=== PATIENT | female | born 1940 | race Caucasian/White ===

== ENCOUNTER 2022-10-28 10:03 | Outpatient (CLI) | payer MEDICARE, BC, SELFPAY ==
--- NOTE | 2022-10-28 10:15 | CRLHL7_ITS ---
For Patients: As a result of the Cures Act, medical imaging exams and procedure reports are released immediately into your electronic medical record. You may view this report before your referring provider. If you have questions, please contact your health care provider. Indication: Diplopia. Meningioma. Technique: Multiplanar, multisequence MRI of the brain was performed without and with the use of intravenous contrast. Contrast: 15 cc Dotarem. Comparison: Multiple prior MRIs of the brain, most recent dated 04/30/2021. Findings: Redemonstration of an enhancing lesion centered at right tentorium. Extension of the lesion into the prepontine cistern with slight unchanged mass effect upon the alexa. Involvement of Meckel`s cave and Dorello`s canal on the right. Additional slight extension into the posterior aspect of the right cavernous sinus abutting the cavernous carotid flow void without encasement. Minimal mass effect upon the medial temporal lobe without edema. The right optic nerve appears intact. No evidence of optic chiasm or intraorbital optic nerve impingement. Overall the lesion measures approximately 2.0 x 2.0 cm (TR X AP) and appears similar to prior examinations. No parenchymal restricted diffusion. The ventricles appear stable in size and configuration. Mild parenchymal volume loss. Scattered T2 FLAIR hyperintense foci within the subcortical and periventricular white matter, favored to represent chronic ischemic microvascular disease. Mild paranasal sinus mucosal disease. Moderate right mastoid effusion. Impression: 1. Overall similar appearing presumed meningioma involving the right tentorium, prepontine cistern and posterior cavernous sinus. Abutment of the cavernous carotid flow void posteriorly. Extension into Meckel`s cave and Dorello`s canal. 2. Similar subtle mass effect upon the anterior alexa without parenchymal edema. 3. Stable mild chronic ischemic microvascular disease. Dictated by Ishmael Lindsay MD @ 10/30/2022 9:25:43 AM (Electronically Signed)
== END 2022-10-28 10:04 | disposition home or self-care (01) ==
PROVIDERS: Absent Provider Surgery; PCP Surgery; Visit Provider Ophthalmology
DX: H53.2 Diplopia (principal); I67.82 Cerebral ischemia; R22.0 Localized swelling, mass and lump, head
CPT/HCPCS: 70553; A9575

== ENCOUNTER 2023-03-30 10:45 | Outpatient (RCR) | payer MEDICARE, BC, SELFPAY | END 2023-07-28 23:59 | disposition home or self-care (01) | PROVIDERS: PCP Surgery; Visit Provider Surgery | DX: M54.2 Cervicalgia (principal); Z51.89 Encounter for other specified aftercare | CPT/HCPCS: 97110; 97140; 97161 ==

== ENCOUNTER 2023-09-17 09:15 | Outpatient (RCR) | payer MEDICARE, BC, SELFPAY ==
--- NOTE | 2023-06-25 12:04 | OT.OPOE ---
OT Outpatient Ortho Eval OT Outpatient Ortho Eval* Start: 06/24/23 18:11 Freq: Status: Active Protocol: Document 06/24/23 18:12 AMB (Rec: 06/24/23 18:21 AMB [id number]) E-signed By Gabriela Smith, OTR/L, CLT, FOOD PRODUCTS TESTER OT OP Ortho Eval Details Complexity Complexity Low Insurance Information Insurance Information Medicare B Outpatient History/Precautions Current Condition/Medical Diagnosis Referring Provider Dr Palomares Treatment Diagnosis Pain, limited ROM, weakness LUE secondary to DR ivonne moser US avulsion injury Date of Onset 05/12/24 Medical Conditions HTN,Arthritis,Osteoporosis Other Conditions PMH/Medication list (copied from ortho chart): Medications: atenolol 25 mg PO DAILY latanoprost 0.005% drps ophthalmic (eye) lisinopril 20 mg PO DAILY spironolactone 25 mg PO DAILY Functional & Cognitive Status Patient needs assist w/ADL's: No Patient appears alert: Yes Tobacco Measurement Smoking Status: Never smoker Exposure to secondhand smoke: No Electronic Cigarettes (Vaping) Vaping Status: Never vaped Exposure to secondhand e- cigarettes?: No [facility] Active Problems (Updated 05/19 @ 14:21 by Paula Mariee) Osteoarthritis of carpometacarpal (CMC) joint of right thumb (Acute) severe - incidental finding M18.11 - Unilateral primary osteoarthritis of first carpometacarpal joint, right hand (ICD-10) Right wrist fracture (Acute) closed treatment of a closed, acute, impacted, nondisplaced fracture of the distal radius with ulnar styloid avulsion injury (DOI: 05/12/2023) S62.101A - Fracture of unspecified carpal bone, right wrist, initial encounter for closed fracture (ICD-10) Medical History (Updated 05/19 @ 14:21 by Paula Mariee) Neck pain M54.2 - Cervicalgia (ICD-10) Hypertension I10 - Essential (primary) hypertension (ICD-10) Surgical History (Updated 07/11 @ 14:08 by Roxanne Piña ~ 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 Pt states she had pain initially but waited until the next day to be seen in urgent care where she discovered that she had broken her wrist. Pt was referred to orthopedics and casted on . The cast was removed on 06/16/23 at which point pt says was not happy with her healing and recommended surgery, however, pt states she really does not want to pursue surgery at this time and opted for continued conservative management. Pt states she is left handed so she feels she is not as concerned. Pt states she has continued her daily routine including all self cares and making sure she gets her lipstick on straight every day . (she has an immense sense of humor) Pt states her pain is on average 4-5/10 but not constant, just with certain movements. Goniometric Comments Goniometric Comments Goniometric Comments 06/25/23 AROM of BUE is WNL throughout with the exception of the RUE forearm and wrist. AROM of the RUE wrist flexion is 35, ext is 40, UD is 20, RD is 10, pronation is 40, supination is 70. Pt is able to make a full composite fist and opposition to the PIP of 5th digit. Too early for strength testing. OT Objective Data Observations/Posture/Limb Appearance Objective Observations 06/25/23 Very mild swelling is appreciated throughout the RUE wrist and hand. No bruising. OT Problems Problems Problems Decreased Strength,Decreased Range of Motion,Decreased Dexterity,Pain,Decreased Coordination,Lifting,Gripping, Pinching Other Problems Opening Containers,Dressing, Computer Patient Potential Good Assessment Assessment Assessment Pt is a very pleasant 82yo female with a great sense of humor presenting to OT with limited AROM and weakness in her RUE hand, wrist, and forearm secondary to a DR fx. Pt verbalizes difficulty with ADLs and IADLs that require use of BUE such as washing clothes, cooking, washing and fixing her hair, opening containers, etc. Pt will benefit from skilled OT intervention to address deficits and restore full, pain-free use of her RUE. Occupational Therapy Treatment Plan - OP Potential Rehabilitation Potential Good Set Goals Goals Set with Patient Yes Goals Goals 1. Pt will be independent and compliant with HEP in order to resume full, pain-free use of the involved UE. 3 weeks 2. Pt will demonstrate full, pain-free AROM of the involved UE in order to improve ability to grasp and hold. 6 weeks 3. 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 8 weeks. Target Date 09/23/23 Treatment Plan Treatment Plan Evaluation,Edema Control,Joint Mobilization,Manual Therapy, Splinting,Therapeutic Exercise ,Therapeutic Activities,Self Care/Home Management,Education Expected Frequency 1-2x Week Expected Duration 8-10 Weeks Home Program Home Program Home Program Initiated Home Program Specifics Provided training and practice in HEP for gentle AROM and non-resisted muscle pumps for edema reduction of the RUE. Following demo, pt is able to complete exs with minimal cues . Pt was provided with written instructions for use at home. Pt was instructed to keep exs pain-free and gentle. Recertification Information Recertification Information Initial Certification Date 06/25/23 Recertification Due Date 09/22/23 Reasons to Continue Skilled Therapy Initiated OT today to address pain, swelling, weakness and limited AROM in the RUE forearm, wrist and hand secondary to DR ivonne Rehabilitation Potential Good Click To Default 'Per treatment plan' Per treatment plan Continued Plan of Care and Interventions Per treatment plan Provider Signature Shows Agreement With POC & Medical Necessity Physician Comment/Change Comment or Changes Physician NPI Number #
== END 2023-09-17 11:16 | disposition home or self-care (01) ==
PROVIDERS: PCP Surgery; Visit Provider Orthopaedic Surgery Sports Medicine
DX: S62.101A Fracture of unspecified carpal bone, right wrist, initial encounter for closed fracture (principal); Z51.89 Encounter for other specified aftercare
CPT/HCPCS: 97110; 97140; 97165; X5282

== ENCOUNTER 2024-06-07 09:00 | Outpatient (CLI) | payer MEDICARE, BC, SELFPAY ==
--- NOTE | 2024-06-07 09:15 | CRLHL7_ITS ---
For Patients: As a result of the Century Cures Act, medical imaging exams and procedure reports are released immediately into your electronic medical record. You may view this report before your referring provider. If you have questions, please contact your health care provider. Indication: MENINGIOMA Technique: Noncontrast sagittal T1, axial FLAIR, T2 turbo spine echo, SWI and diffusion weighted images. Supplemental post contrast T1 weighted axial and coronal sequences are provided after administration of 15 mL Dotarem gadolinium-based IV contrast. Comparison: 10/28/2022 MRI Findings: There is no evidence of diffusion restriction to suggest acute ischemia. No midline shift. No hydrocephalus. Mild generalized parenchymal volume loss. No pathologic susceptibility artifacts. Multiple scattered foci of T2 prolongation in the supratentorial subcortical white matter nonspecific but typical for chronic deep small-vessel disease. Stable 2.6 x 1.9 cm homogeneously enhancing extra-axial lesion along the right tentorial incisura extends into right Meckel`s cave and Dorello`s canal encasing the right 5th and 6th cranial nerves cisternal segments, as well as right cavernous sinus without vessel narrowing. Stable extension into the prepontine cistern with mild effacement of the right ventral alexa. Advanced degenerative changes on the left C2-3 facet joint. Rightward deviation of the nasal septum. No pathologic susceptibility artifacts. Mild right mastoid air cell effusion. Impression : 1. Stable right tentorial incisura meningioma with similar extension into right Meckel`s cave and Dorello`s canal, right cavernous sinus, and slight effacement of the right ventral alexa. 2. Stable mild chronic small-vessel ischemic changes and parenchymal volume loss. Dictated by Jung Mazariegos MD @ 06/07/2024 1:42:37 PM (Electronically Signed)
== END 2024-06-07 09:01 | disposition home or self-care (01) ==
PROVIDERS: PCP Surgery; Visit Provider Surgery
DX: D32.9 Benign neoplasm of meninges, unspecified (principal); I67.82 Cerebral ischemia; F41.9 Anxiety disorder, unspecified
CPT/HCPCS: 70553; A9575

== ENCOUNTER 2025-01-19 11:30 | Outpatient (RCR) | payer MEDICARE, BC, SELFPAY | END 2025-02-10 09:26 | disposition home or self-care (01) | PROVIDERS: PCP Surgery; Visit Provider Surgery | DX: M54.2 Cervicalgia (principal); Z51.89 Encounter for other specified aftercare | CPT/HCPCS: 97110; 97140; 97161 ==